=== PATIENT | male | born 1975 | race Caucasian/White ===

== ENCOUNTER 2025-05-25 12:01 | Emergency (ER) | payer SELFPAY ==
[2025-05-25 12:35] VITALS: BP 145/86; PULSE 82; RESP 18; TEMP 36.9; O2SAT 96; BMI 36.3
--- NOTE | 2025-05-25 12:35 | ED.UPPEXIN ---
HPI - Extremity Injury (Upper) General Chief Complaint: Wound/Laceration Stated Complaint: work inj, arm lac Time Seen by Provider: 05/25/25 13:44 Source: patient, RN notes reviewed, old records reviewed and neuroscientist Mode of arrival: ambulatory Limitations: language barrier (Martiniquais-speaking) History of Present Illness ED Provider: HUANG Bennett HPI narrative: 50-year-old Martiniquais-speaking male without known medical history presents to the ED after work injury. Patient states he was working with a table saw when he became distracted and hit the right forearm into the saw. Denies any numbness or tingling. Patient is not up-to-date with tetanus vaccination. Denies chest pain, shortness of breath, abdominal pain, nausea, vomiting Related Data Previous Rx's ?Medication ?Instructions ?Recorded cephalexin 500 mg capsule 500 mg PO QID 7 days #28 caps 05/25/25 Allergies Allergy/AdvReac Type Severity Reaction Status Date / Time No Known Allergies Allergy Verified 05/25/25 12:36 Review of Systems Review of Systems: Yes all other systems are reviewed and are negative PMFSH Past Medical History Attestation statement: The following information was validated with the patient. Source: old records reviewed and nursing notes reviewed Social History Social History Advance Directives: No Advance Directives Information Provided: Yes Physical Exam Vital Signs: Vital Signs: Last Vital Signs Temp 98.5 F 05/25/25 16:14 Pulse 104 H 05/25/25 16:14 Resp 16 05/25/25 16:14 BP 147/90 H 05/25/25 16:14 Pulse Ox 97 05/25/25 16:14 O2 Del Method Room Air 05/25/25 16:14 BMI result Body Mass Index 36.3 GENERAL APPEARANCE: ?AxOx4, generally well-appearing, no acute distress. HEENT: ?NC, AT. MMM. EOMI, clear conjunctiva, oropharynx clear. NECK: ?Supple without lymphadenopathy.? No stiffness or restricted ROM. HEART:? Normal rate and regular rhythm, normal S1/S1, no m/r/g LUNGS:? CTAB, moving air well. No crackles or wheezes are heard. ABDOMEN: ?Soft, nontender, nondistended with good bowel sounds heard. BACK: No CVAT, no obvious deformity. EXTREMITIES: ?Without cyanosis, clubbing or edema. 5cm laceration to the R forearm, the limb is neurovascularly intact and well perfused, SILT, radial pulses 2+, NEUROLOGICAL: ?Grossly nonfocal. Alert and oriented, moving all 4 extremities. Observed to ambulate with normal gait. Skin: ?Warm and dry without any rash. Course Course Course Narrative: This is a Rapid Medical Exam performed in triage by Moni Jimenes PA-C. Full HPI, ROS and PE to be performed by primary ED provider. 50 yo M presenting to the ED c/o R arm laceration s/p using circular saw at work [employer]. Tetanus unknown PE: 5cm deep laceration noted to ALFONSO. bleeding controlled Plan: Wound repair, Tdap Medications Administered Discontinued Medications Generic Name Dose Route Start Last Admin Trade Name Freq PRN Reason Stop Dose Admin Bacitracin 2 appl 05/25/25 15:44 05/25/25 16:01 Bacitracin Oint 0.9 Gm Packet TOPICAL 05/25/25 15:45 2 appl ONCE ONE Administration Protocol Diphtheria/Tetanus/Acell Pertussis 0.5 ml 05/25/25 12:38 05/25/25 14:42 Diphth,Pertus(Acell),Tet Adult 0.5 Ml Syringe IM 05/25/25 12:39 0.5 ml .ONCE ONE Administration Lidocaine HCl 10 ml 05/25/25 14:47 05/25/25 14:52 Lidocaine Hcl 1 % Mpf 5 Ml Vial SUBCUT 05/25/25 14:48 10 ml ONCE ONE Administration Medical Decision Making Medical Decision Making MDM Narrative: 50-year-old Martiniquais-speaking male without known medical history presents to the ED after work injury. Patient states he was working with a table saw when he became distracted and hit the right forearm into the saw. Denies any numbness or tingling. Patient is not up-to-date with tetanus vaccination. Patient was given Tdap vaccination. The laceration was irrigated extensively with sterile saline and iodine and anesthetized with 1% lidocaine. Ten sutures were placed for closure, with minimal bleeding, the patient tolerated the procedure well. Patient was discharged with 7 day course of Keflex q.i.d. for bacterial coverage. Patient does not have a primary care doctor. I counseled patient that the sutures will stay in place for the next 7-10 days and that he can present back to [facility] ED or urgent care for removal. I counseled patient on how to care for the sutures as they are healing, and specific and detailed return precautions with the neuroscientist. Patient is in agreement with the plan, feels well enough to go home for self-care, and will present back to ED or urgent care for suture removal. Differential Diagnosis Differential Diagnoses: The differential diagnosis associated with the presentation includes Laceration Tdap administration Admission/Observation Consideration of admission/observation: Escalation of care including admission/observation considered Independent Historian Clinical information obtained from an independent historian. History obtained from or confirmed by: Other (Family member at bedside) External Record Review External record reviewed: Inpatient record, Office record and Outpatient record Chronic Conditions Patient?s care impacted by: Other (No known medical history) Procedures Laceration Laceration 1: Site: upper extremity (Right forearm) Side (If applicable): right Size (cm): 5 Description: irregular Depth: simple, single layer Local Anesthetic: lidocaine 1% Amount of anesthesia used (mL): 8 Pre-repair: wound explored, irrigated extensively and deep structures intact Skin layer closed with: nylon Size (cm): 4-0 Number of sutures: 10 Technique: simple, interrupted Subcutaneous layer closed with: other (Nylon) Discharge Plan Discharge Clinical Impression: Laceration Patient Disposition: Home, Self-Care Additional Instructions: Your wound was extensively irrigated with saline and iodine, ten sutures were placed to the right forearm, bacitracin ointment applied, nonstick dressing and bandage placed. Please do not get this wet and keep this intact for the next 24 hours. Starting tomorrow, you can shower as you normally do. Please apply clean dressing to the area daily for the next 5 days. Do not submerge the hand under water, and pools, hot tubs/Jacuzzi, or dish water. The stitches will be kept in place for the next 7-10 days. You are being prescribed 7 day course of Keflex that you will take 4 times daily for bacterial coverage. Please complete the entire course of medication to prevent infection. To manage pain at home you can take 500 mg of Tylenol and 400 mg of ibuprofen every 6 hours, apply ice the affected area. You can return to the emergency department and/or urgent care for removal of the sutures. Please return to the emergency department if you experience increasing pain, swelling, redness, warmth or pus-like drainage from the area Prescriptions: New cephalexin 500 mg capsule 500 mg PO QID 7 Days Qty: 28 0RF Interventions: ED Discharge Assessment Last Done: 05/25/25 16:14 Discharge Date/Time: 05/25/25 16:14 Print Language: Martiniquais
[2025-05-25 14:37] VITALS: BP 147/90; PULSE 104; RESP 16; TEMP 36.9; O2SAT 97
[2025-05-25] MEDS: Diphth,Pertus(ACell),Tet Adult 0.5 ML SYRINGE IM (14:42)
[2025-05-25] MEDS: Lidocaine HCl 1 % MPF 5 ML VIAL 10 ML SUBCUT (14:52)
--- NOTE | 2025-05-25 15:14 | PC.NURSE ---
Bhanu MURRAY at bedside for sutures
[2025-05-25 16:14] VITALS: BP 147/90; PULSE 104; RESP 16; TEMP 36.9; O2SAT 97
== END 2025-05-25 16:14 | disposition home or self-care (01) ==
PROVIDERS: Emergency Provider Student in an Organized Health Care Education/Training Program
DX: S51.811A Laceration without foreign body of right forearm, initial encounter (principal); W31.2XXA Contact with powered woodworking and forming machines, initial encounter; Y93.9 Activity, unspecified; Y92.69 Other specified industrial and construction area as the place of occurrence of the external cause; Y99.0 Civilian activity done for income or pay; Z23 Encounter for immunization
CPT/HCPCS: 12002; 90471; 90715; 99284; J2003

== ENCOUNTER 2025-06-03 11:18 | Emergency (ER) | payer SELFPAY ==
[2025-06-03 11:21] VITALS: BP 171/83; PULSE 84; RESP 18; TEMP 36.4; O2SAT 96; BMI 35.5
--- NOTE | 2025-06-03 11:21 | ED_ITS ---
HPI - General Adult General Chief complaint: Wound/Laceration Stated complaint: stitches Time Seen by Provider: 06/03/25 11:23 Source: patient, bilingual interpreter (patient declined [facility] Processing Analyst and requested using his friend at the bedside) and other (patient's friend) Mode of arrival: ambulatory Limitations: language barrier (patient declined [facility] Processing Analyst and requested using his friend at the bedside) History of Present Illness ED Provider: Elda Aly PA-C HPI narrative: Patient is a 50 year old assigned male at with no reported medical history presenting to the emergency department today for suture removal. Patient states that on 05/25/2025 he had 10 sutures placed in his right forearm and was prescribed an antibiotic which he has been taking but has 5 pills of it left. Patient states that he has not noticed any sutures falling out and has not noticed any discharge from the wound. Patient denies any other complaints at this time. Related Data Previous Rx's ?Medication ?Instructions ?Recorded cephalexin 500 mg capsule 500 mg PO QID 7 days #28 cap s 05/25/25 doxycycline hyclate 100 mg tablet 100 mg PO BID 7 days #14 tabs 06/03/25 Allergies Allergy/AdvReac Type Severity Reaction Status Date / Time No Known Allergies Allergy Verified 06/03/25 11:24 Review of Systems 2 Constitutional: Constitutional: Reports as per HPI Eyes: Eyes: Reports as per HPI ENT: Reports as per HPI Cardiovascular: Cardiovascular: Reports as per HPI Respiratory: Respiratory: Reports as per HPI Gastrointestinal: Gastrointestinal: Reports as per HPI Genitourinary: Genitourinary: Reports as per HPI Musculoskeletal: Musculoskeletal: Reports as per HPI Integumentary/Breasts: Skin/Breast: Reports as per HPI Neurologic: Reports as per HPI Psychiatric: Psychiatric: Reports as per HPI Endocrine: Endocrine: Reports as per HPI Hematologic/Lymphatic: Hematologic/Lymphatic: Reports as per HPI Allergic/Immunologic: Allergic/Immunologic: Reports as per HPI [facility] Past Medical History Attestation statement: The following information was validated with the patient. Source: old records reviewed and nursing notes reviewed Social History Social History Advance Directives: No Advance Directives Information Provided: No Physical Exam ED Vital Signs: Vital Signs - 24 hr 06/03/25 11:21 11/28/25 12:13 Temperature 97.6 F 97.6 F Pulse Rate 84 84 Respiratory Rate 18 18 Blood Pressure 171/83 H 171/83 H Pulse Oximetry 96 96 Oxygen Delivery Method Room Air Room Air BMI result Body Mass Index 35.5 Const General: cooperative, no acute distress, alert and awake Nutritional Appearance: well nourished Orientation/consciousness: patient oriented x3 HENMT Head: Yes normal to inspection and Yes atraumatic Ears: hearing grossly normal bilaterally and external ears normal General nose exam: Normal external nose present, no nasal discharge noted and no epistaxis Face and sinus: Yes normal facial exam, No abrasion and No laceration Mouth: Normal oral and palatal mucosa present, no drooling and no muffled voice Eyes General: appearance normal, both eyes and all related structures Periorbital: periorbital findings normal Eyelids: Yes eyelids normal Conjunctivae: conjunctivae normal Pupils: Equal, round and reactive pupils present EOM: EOMs intact bilaterally Neck Neck: Yes normal visual inspection and Yes full ROM Resp Effort & Inspection: normal respiratory effort and able to speak in complete sentences Neuro General: patient oriented x3, moves all extremities and CN's II-XI intact bilaterally Cranial nerves: Yes Equal, round and reactive pupils present Cognition (Neuro): normal cognition Extrem Other: General: Yes full ROM and Yes capillary refill normal Psych Appearance: grossly normal Mental Status: mental status grossly normal Affect: normal affect Attitude: cooperative Thought process: Normal thought process present Thought content: Normal thought content present Insight: Good insight present (Psych) Procedures Procedure Narrative Procedure Narrative: 8 sutures removed from the right forearm - without incident. Patient's PMS was intact prior to and after suture removal. Patient's wound edges are well approximated. Medical Decision Making Medical Decision Making MDM Narrative: Patient is a 50 year old assigned male at with no reported medical history presenting to the emergency department today for suture removal. Patient's physical exam was as noted in the physical exam portion of this note. Patient's wound edges were erythematous - concerning for cellulitis despite his antibiotic use. The wound edges were well approximated but only 8 sutures were seen and 10 were previously placed. I explained my physical exam findings to the patient and the patient's friend. I answered all questions asked by the patient and the patient's friend. I removed the 8 sutures present - without incident, per procedure note. I removed parts of the scabbing from the wound and could not visualize any more sutures. Given evidence of cellulitis - I added Doxycycline to the patient's antibiotic regimen. I stressed the importance of the patient taking his medication as directed (either prescribed or as the over the counter packaging recommends). I stressed the importance of the patient following up with his primary care provider. I stressed the importance of the patient returning to the emergency department immediately if his symptoms were to worsen or if he were to develop any dizziness, shortness of breath, difficulty breathing, chest pain, blurry vision, loss of vision, nausea, vomiting, abdominal pain, fever, chills, back pain, or any other complaints. Patient and the patient's friend verbalized agreement and understanding with this treatment plan and discharge. Differential Diagnosis Differential Diagnoses: The differential diagnosis associated with the presentation includes Cellulitis Sutures removal Admission/Observation Consideration of admission/observation: Escalation of care including admission/observation considered Patient would have been admitted to the hospital had his clinical presentation warranted hospital admission. Independent Historian Clinical information obtained from an independent historian. History obtained from or confirmed by: Friend (patient's friend provided additional history and confirmed the history provided by the patient. ) Prescription Management I considered prescription management with: Antibiotic (prescribed an antibiotic as noted in the MDM Rationale portion of this note. ) Discharge Plan Discharge Clinical Impression: Encounter for removal of sutures Cellulitis Qualifiers: Site of cellulitis: extremity Site of cellulitis of extremity: upper extremity Laterality: right Qualified Code(s): L03.113 - Cellulitis of right upper limb Patient Disposition: Home, Self-Care Instructions: Cellulitis (ED), Stitches Removal (ED) Additional Instructions: You had your 8 sutures removed here in the emergency department. The previous documentation shows that you had a total of 10 placed however, there were only 8 to remove. 2 must have fallen out or are buried underneath the scabbing you have present. If you discover any remaining sutures after the scabbing falls away - please be seen to have the remaining suture(s) removed. Le carrasquillo quitado aqu?, en el servicio de urgencias, las 8 suturas que ten?a. La documentaci?n previa indica que le colocaron un total de 10, kaylynn solo hab?a 8 que quitar. Es posible que 2 se hayan ca?do o est?n ocultas debajo de la costra que tiene ahora. Si descubre alguna sutura restante despu?s de que se caiga la costra, acuda a que le quiten la(s) sutura(s) restante(s). The skin around the sutures appears infected - please finish the antibiotic you were previously prescribed AND take the antibiotic that I have prescribed today. La piel alrededor de las suturas parece infectada. Termine el antibi?landen que le recetaron anteriormente Y tome el antibi?landen que le he recetado hoy. Please allow the scabbing to fall away on it's own. If you have any concerns for scarring - once the scabbing falls away, apply sunscreen every day for 1 full year. Deje que la costra se caiga por s? mian. Si le preocupa que quede cicatriz, negar vez que se haya ca?do la costra, aplique protector solar todos los d?as urban un a?o completo. IF you are prescribed home medications and/or you are taking over the counter medications at home - it is very important you continue to do so as prescribed / directed unless told otherwise. SI le recetan medicamentos y/o est? tomando medicamentos de venta bon, es muy importante que contin?e haci?ndolo seg?n lo recetado/indicado a menos que le indiquen lo contrario. Follow up with your primary care provider. Return to the emergency department immediately if your symptoms worsen or if you develop any dizziness, shortness of breath, difficulty breathing, chest pain, blurry vision, loss of vision, nausea, vomiting, abdominal pain, fever, chills, back pain, or any other complaints. Liset?seguimiento?con can m?dico de atenci?n primaria. Acuda inmediatamente al servicio de urgencias si gui s?ntomas empeoran o si presenta falta de aliento, dificultad para respirar, dolor tor?cico, mareos, aturdimiento, dolor de espalda, dolor abdominal, fiebre, escalofr?os o cualquier otro s?ntoma. If you do not have a primary care provider - call any of the below numbers to establish and follow up with a primary care provider. Si no tiene un proveedor de atenci?n primaria, llame a cualquiera de los n?meros que aparecen a continuaci?n para establecer y hacer seguimiento con un proveedor de atenci?n primaria. [facility] Primary Care ([place]) [phone] [place] [address], [address] [facility] Primary Care ([address] [place]) [phone] [place] [address], [address] [facility] [place], [address] [facility] Primary Care ([address] [place]) [phone] [place] [address], [address] [facility] [place], [address] [facility] Primary Care ([place]) [phone] [place] [address] 2 [facility], [address] [facility] Family Medicine [phone] [place] [address], [address] Please see the information below about our Patient Portal. If you are not yet enrolled in the [facility] Patient Portal, you will receive an enrollment email invitation following your visit to any [facility] setting. You may also self-enroll in the Patient Portal by visiting our website: [email or web address] The following information is required to access the Patient Portal: - Your [facility] Medical Record Number - Your personal home email address (must match what is in your electronic medical record, Registration staff can assist with this) - Name - Date of Capabilities of the Patient Portal: - Message some providers - View upcoming appointments - Access your health summary, medical history, and visit history - View current conditions and allergies - View procedure and lab results - View your medications, including guidelines, side effects, and precautions - Complete pre-appointment questionnaires requested by your provider - Ready summary reports of your office visits and procedures To access the Patient Portal Mobile Rose, follow these directions: - Search Myows in the Rose Store or Google Anesiva Store - Download the Rose - Search for [facility] - Enter your login/password Portal del paciente Si usted no esta inscrito en el portal de pacientes de [facility], recibira negar invitacion de inscripcion despues de can visita al [facility] o al [facility] via correo electronico. Tambien puede inscribirse voluntariamente en el portal de pacientes visitando nuestra pagina web: [email or web address] La siguiente informacion sera requerida para acceder al portal: - Can andria de historia medica de [facility] - Can direccion de correo electronico personal - Nombre - Fecha de nacimiento Capacidades: Las siguientes capacidades estan disponibles en el portal de pacientes: - Enviar mensajes a algunos doctores - Verificar proximas citas - Acceso a can historial de artis, registro medico e historial de visitas - Gonzales las condiciones actuales y alergias gonzales procedimientos y resultados del laboratorio - Gonzales gui medicamentos, incluyendo las pautas - Efectos secundarios y precauciones - Completar o llenar formularios / cuestionarios de - Citas solicitadas por can doctor - Leer los resumenes de reportes medicos de gui visitas y procedimientos Mershon acceder a la aplicacion movil: - [employer] [facility] en la Rose Store o Google Play Store - Descargue la aplicacion - [facility] - Ingrese can nombre de usuario / Contrasena Prescriptions: New doxycycline hyclate 100 mg tablet 100 mg PO BID 7 Days Qty: 14 0RF No Action cephalexin 500 mg capsule 500 mg PO QID 7 Days Qty: 28 0RF Interventions: ED Discharge Assessment Last Done: 06/03/25 12:13 Discharge Date/Time: 06/03/25 11:45 Print Language: Luxembourgish
[2025-06-03 12:13] VITALS: BP 171/83; PULSE 84; RESP 18; TEMP 36.4; O2SAT 96
== END 2025-06-03 11:45 | disposition home or self-care (01) ==
PROVIDERS: Emergency Provider Emergency Medicine
DX: Z48.02 Encounter for removal of sutures (principal)
CPT/HCPCS: 99282